=== PATIENT | male | born 1950 | race Caucasian/White ===

== ENCOUNTER 2023-02-07 19:52 | Outpatient (REF) | payer MEDICARE, OTHER, SELFPAY ==
[2023-02-07 18:13] LABS: HCT 42.9 % (40.0-50.0); HGB 14.7 g/dL (13.5-17.5); MCH 31.2 pg (27.0-33.0); MCHC 34.3 % (32.0-36.0); MCV 91 fL (80-95); MPV 10.6 fL (8.0-11.0); Platelet Count 197 10^3/uL (130-400); RBC 4.71 10^6/uL (4.36-5.78); RDW 12.5 % (11.8-14.1); RDW-SD 41.6 fL; WBC 4.96 10^3/uL (4.4-10.8)
[2023-02-07 18:29] LABS: ALT 31 U/L (16-63); AST 20 U/L (15-37); Albumin 3.7 g/dL (3.4-5.0); Alkaline Phosphatase 100 U/L (46-116); BUN 19 mg/dL (7-18); Bilirubin, Total 0.4 mg/dL (0.2-1.0); Calcium 8.9 mg/dL (8.5-10.1); Calculated LDL 104 mg/dL (<100); Chloride 107 mmol/L (98-107); Cholesterol 182 mg/dL (<200); Estimated GFR 79.97 (mL/min/1.73m2); Glucose 119 mg/dL (74-106); HDL Cholesterol 35 mg/dL (40-60); Potassium 4.1 mmol/L (3.5-5.1); Sodium 140 mmol/L (136-145); Total Protein 7.9 g/dL (6.4-8.2); Triglyceride 216 mg/dL (<150)
== END 2023-02-07 19:53 | disposition home or self-care (01) ==
LOC: NCHCN 19:52
PROVIDERS: Visit Provider Family Medicine
DX: N52.9 Male erectile dysfunction, unspecified (principal); R73.9 Hyperglycemia, unspecified; I83.92 Asymptomatic varicose veins of left lower extremity; L56.8 Other specified acute skin changes due to ultraviolet radiation; K21.9 Gastro-esophageal reflux disease without esophagitis
CPT/HCPCS: 80053; 80061; 85027; 83036

== ENCOUNTER 2023-10-03 11:31 | Outpatient (REF) | payer OTHER, SELFPAY ==
[2023-10-03 15:57] LABS: Hemoglobin A1C 6.2 % (<5.7)
[2023-10-03 16:00] LABS: Calculated LDL 67 mg/dL (<100); Cholesterol 134 mg/dL (<200); HDL Cholesterol 40 mg/dL (40-60); Triglyceride 136 mg/dL (<150); Vitamin D 25 Total 38.2 ng/mL (30-100)
== END 2023-10-03 11:32 | disposition home or self-care (01) ==
LOC: NCHCN 11:31
PROVIDERS: Visit Provider Family Medicine
DX: R73.03 Prediabetes (principal); E55.9 Vitamin D deficiency, unspecified; Z86.2 Personal history of diseases of the blood and blood-forming organs and certain disorders involving the immune mechanism; R79.89 Other specified abnormal findings of blood chemistry
CPT/HCPCS: 80061; 82306; 83036